=== PATIENT | female | born 1990 | race Two or more races ===

== ENCOUNTER 2022-11-02 11:16 | Outpatient (AMBR) | payer MEDICAID, SELFPAY ==
--- NOTE | 2022-11-02 12:40 | PT.ODAYNRPT ---
PT Outpatient Daily Note Date of Service: 11/02/22 OP Daily Note Visit Reasons: Low back pain Outpatient Physical Therapy Treatment Date: 11/02/22 Subjective: Pt reports no changes in low back. Objective: Please see flow sheet for ther ex list. Assessment: Slow interventions progression due to pt pain response. Plan: Continue with POC. Length of Time (minutes) of Treatment: 30 Minutes
--- NOTE | 2022-11-28 10:42 | PTNOTE_ITS ---
PT OP Progress/Discharge Note Date of Service: 11/28/22 Patient Information Visit Reasons: Low back pain Service Continue Service or Discharge: Discharge Discharge Date: 11/28/22 Status Assessment: Pt has been seen for 5 visits (eval + 4 visits). Pt last treated on 11/02/22 and no showed 11/07/22 appt. At this time Pt will be d/c from care due to non- compliance per attendance policy. Pt did not meet set goals in therapy; thank you for your referrals.
== END 2022-11-30 23:59 | disposition home or self-care (01) ==
PROVIDERS: Visit Provider Internal Medicine
DX: M54.50 Low back pain, unspecified (principal); M54.6 Pain in thoracic spine
CPT/HCPCS: 97110

== ENCOUNTER 2024-07-24 17:09 | Emergency (ER) | payer MEDICAID, SELFPAY ==
[2024-07-24 17:10] VITALS: BMI 21.9
[2024-07-24 18:08] VITALS: BP 120/84; PULSE 89; RESP 18; TEMP 36.9; O2SAT 99
[2024-07-24] MEDS: BACLOFEN 10 MG TABLET PO (18:33)
--- NOTE | 2024-07-24 18:39 | PD.EDFMALE ---
ED Female Urogenital RME/HPI General Chief complaint: Abdominal Pain Stated complaint: BERNARD LOWER BACK PAIN RADIATING TO FRONT ABD Time Seen by Provider: 07/24/24 18:25 Arrival date/time: 07/24/24 17:09 33F with history of asthma presents to ED with 2 days of bilateral lower back pain that radiates to pelvic area. Patient denies fall/trauma, N/V, dysuria, vaginal bleeding, diarrhea, bowel/bladder incontinence, and paresthesia. Patient is late on her cycle by about 3 days. Limitations: no limitations Related Data Home Medications ?Medication ?Instructions ?Recorded ?Confirmed vit no.95-ferrous 1 tab PO DAILY 05/23/21 11/06/21 fumarate 28 mg-folic acid 800 mcg tablet () omeprazole 20 mg capsule,delayed 20 mg PO QDAY 07/31/21 11/06/21 release ferrous sulfate 325 mg (65 mg 325 tab PO DAILY 11/06/21 11/06/21 iron) tablet Previous Rx's ?Medication ?Instructions ?Recorded ibuprofen 800 mg tablet 800 mg PO Q8H PRN pain #30 tabs 11/07/21 cyclobenzaprine 5 mg tablet 5 mg PO TID PRN muscle spasm #30 08/29/22 tabs ibuprofen 600 mg tablet 600 mg PO Q6H #30 tabs 08/29/22 Allergies Allergy/AdvReac Type Severity Reaction Status Date / Time No Known Allergies Allergy Verified 07/24/24 17:11 Review of Systems Review of Systems Systems Reviewed: All systems reviewed, normal except as documented Constitutional Constitutional: Reports system reviewed and no additional complaints, except as documented, Denies fever(s) and Denies headache(s) ENT Ears, Nose, Mouth, and Throat: Denies disequilibrium and Denies headache(s) Cardiovascular Cardiovascular: Reports system reviewed and no additional complaints, except as documented, Denies chest pain and Denies dyspnea Respiratory Respiratory: Reports system reviewed and no additional complaints, except as documented, Denies cough and Denies dyspnea Gastrointestinal Gastrointestinal: Reports system reviewed and no additional complaints, except as documented, Denies abdominal pain, Denies nausea and Denies vomiting Musculoskeletal Musculoskeletal: Reports as per HPI and Reports back pain Neurologic Neurologic: Reports system reviewed and no additional complaints, except as documented, Denies confusion, Denies disequilibrium and Denies headache(s) Psychiatric Psychiatric: Denies confusion Past Medical History Past Medical History NEUROLOGIC: Negative Neurological Disorders or Seizures CARDIAC: Negative Cardiac Disorders or Congestive Heart Failure RESPIRATORY: Positive Asthma; Negative Chronic Obstructive Pulmonary Disease (COPD) GASTROINTESTINAL: Positive Gastrointestinal Disorders and Gastroesophageal Reflux Disease; Negative Gall Bladder Disease GENITOURINARY: Positive Genitourinary Disorders (UTI, YEAST INFECTION); Negative Renal Disease REPRODUCTIVE: Positive Genital Herpes and Previous Pregnancies MUSCULOSKELETAL: Negative Musculoskeletal Disorders ENDOCRINE: Negative Endocrine Disorders, Diabetes Mellitus Type 1 or Diabetes Mellitus Type 2 HEMATOLOGIC: Positive Blood Disorders and Anemia; Negative Sickle Cell Disease PSYCHO/SOCIAL: Positive Anxiety OTHER HISTORY: Positive Blood Transfusions ((2020)); Negative Autoimmune Disease, Falls, Blood Transfusion Reaction, Anesthesia Reactions or Cancer Family History FAMILY HISTORY: Negative Family Psychiatric Problems, Family Respiratory Disorders, Family Cardiac Disorders, Family Gastrointestinal Problems, Family Cancer, Family Surgery or Family Anesthesia Reaction Surgical History SURGICAL: Negative Neurologic Surgery Social History SMOKING STATUS: Never smoker SUBSTANCE USE: does not use ED Exam General Limitations: Present no limitations General appearance: Present alert and in no apparent distress Head Head exam: Present atraumatic Eye Eye exam: Present normal appearance, PERRL and EOMI ENT ENT exam: Present normal exam, normal oropharynx and mucous membranes moist Neck Neck exam: Present normal inspection, full ROM and trachea midline Chest Chest inspection: Present normal inspection and symmetric chest wall rise Respiratory Respiratory exam: Present normal lung sounds bilaterally Cardiovascular Cardiovascular exam: Present regular rate, normal rhythm and normal heart sounds Abdominal Exam Abdominal exam: Present soft and normal bowel sounds Extremities Exam Extremities exam: Present normal inspection and full ROM Back Exam Back exam: Present normal inspection and full ROM Neurological Exam Neurological exam: Present alert, oriented X3 and CN II-XII intact Psychiatric Psychiatric exam: Present normal affect and normal mood Skin Skin exam: Present warm, dry, intact and normal color Course Quality Measures none Orders Category Date Time Status US transvaginal Stat Exams 07/24/24 21:12 Completed Drug Screen,Urine Stat Lab 07/24/24 19:12 Completed HCG Qualitative,Urine Stat Lab 07/24/24 19:12 Completed Urinalysis, C/S if Indicated Stat Lab 07/24/24 19:12 Completed Baclofen [Lioresal] Med 07/24/24 18:25 Discontinued 10 mg PO X1 ONE HYDROcodone*/APAP 5/325 [[place] 5/325] Med 07/24/24 22:03 Discontinued 1 tab PO X1 ONE Vital Signs Vital signs: Vital Signs Temperature 98.5 F 04/24/25 18:08 Pulse Rate 89 07/24/24 18:08 Respiratory Rate 18 07/24/24 18:08 Blood Pressure 120/84 07/24/24 18:08 Pulse Oximetry (%) 99 07/24/24 18:08 Oxygen Delivery Method Room Air 07/24/24 18:08 O2 at 99% on RA and WNLs Urogenital - Female MDM Narrative MDM Narrative:: 33F with history of asthma presents to ED with 2 days of bilateral lower back pain that radiates to pelvic area. Patient denies fall/trauma, N/V, dysuria, vaginal bleeding, diarrhea, bowel/bladder incontinence, and paresthesia. Patient is late on her cycle by about 3 days. Physical exam reveals well-appearing female. Gait normal. ROM intact. Patient is afebrile, calm, and alert. US reveals ovarian cyst. UA clean. HCG neg. Patient data External records reviewed:: [facility] previous records Clinical information provided by:: patient Social determinants that could affect healthcare access:: none Patient has the following chronic illnesses:: asthma How is presenting disease/condition affected by chronic disease/condition?: exacerbated by Evaluation data The following diagnostics were reviewed and interpreted by me:: lab results Lab and/or radiology exams considered but not ordered:: ordered Interpretation Summary: above Medications / Prescriptions Medications or Prescriptions considered but not ordered:: ordered Medication administrations:: Medication Administration History Discontinued Medications Hydrocodone Bitart/Acetaminophen (Hydrocodone/Apap 5/325 Tablet) 1 tab PO X1 ONE Stop: 07/24/24 22:04 Last Admin: 07/24/24 22:10 Dose: 1 tab Documented By: WERO Baclofen (Baclofen 10 Mg Tablet) 10 mg PO X1 ONE Stop: 07/24/24 18:26 Last Admin: 07/24/24 18:33 Dose: 10 mg Documented By: GM above Consultations Consultation(s) initiated? (list below): No Diagnosis Urogenital Female Differential Diagnosis: urinary tract infection, bacterial vaginosis, trichomoniasis, cervicitis, ovarian cyst, vaginitis, ruptured ovarian cyst, cyst of Bartholin's gland, cystitis, dysmenorrhea and other (back pain, , ) Most likely diagnosis given after review of the tests above:: ovarian cyst Admission Indicated Admission indicated?: not indicated Admission Request Was there a request for admission?: No Disposition Plan Disposition Plan: Discharge Discharge Attestation Discharge Attestation: The patient and all family members were given an opportunity to ask questions and understood the discharge instructions. Discharge instructions specifically effects, indications for sooner follow up or return to the emergency department, and the expected course of current diagnosis. Patient condition: Stable Discharge Plan Plan Patient Disposition: HOME (Self Care) Disposition Comment: Stable Prescriptions/Referrals Prescriptions/Med Rec: No Action PNV cmb#95-ferrous fumarate-FA [] 28 mg iron- 800 mcg tablet 1 tab PO DAILY omeprazole 20 mg capsule,delayed release(DR/EC) 20 mg PO QDAY Patient Comments: TAKE 1 CAPSULE BY MOUTH EVERY DAY 30 MINUTES BEFORE BREAKFAST ferrous sulfate 325 mg (65 mg iron) tablet 325 tab PO DAILY Patient Comments: Take 1 tablet by mouth twice a day as directed ibuprofen 800 mg tablet 800 mg PO Q8H PRN (Reason: pain) Qty: 30 0RF ibuprofen 600 mg tablet 600 mg PO Q6H Qty: 30 0RF cyclobenzaprine 5 mg tablet 5 mg PO TID PRN (Reason: muscle spasm) Qty: 30 0RF Referrals: No Primary/Family,Physician [Primary Care Provider] - In 1 week Problem List Clinical Impression: Ovarian cyst Patient/Caregiver Discharge Instructions Education Materials: ED Ovarian Cyst Additional Instructions: Please follow-up with PCP within 24-48 hours and return immediately if symptoms worsen. Print Language: Barbadian Stand Alone Forms: Patient Portal Info Letter PA/EDUCATION [employer] MEMBER Supervising Physician JUNE/[employer]UC[employer] MEMBER Supervising Physician: Dr. Pepper
[2024-07-24 20:07] VITALS: BP 125/84; PULSE 86; RESP 17; TEMP 36.8; O2SAT 100
[2024-07-24 20:10] LABS: Collection Type, Urine Clean Catch
[2024-07-24 20:13] LABS: HCG Qualitative,Urine Negative
[2024-07-24 20:20] LABS: Bilirubin,Urine Negative (Negative); Blood,Urine Negative (Negative); Clarity,Urine Clear (Clear/Hazy); Color,Urine Lt-Yellow (Lt Yel-Yel); Culture Indicated,Urine Not Indicated; Glucose, Urine Negative (Negative); Ketones,Urine Negative (Negative); Leukocyte Esterase,Urine Negative (Negative); Nitrite,Urine Negative (Negative); PH,Urine 5.5 (5.0-7.0); Protein,Urine Negative (Neg - Trace); RBC,Urine 2 /hpf (0-3); Specific Gravity,Urine 1.024 (1.001-1.035); Squamous Epithelial Cell,Urine 9 /hpf (0-5); Urobilinogen,Urine Negative mg/dL (0.0-1.0); WBC,Urine 3 /hpf (0-5)
[2024-07-24 20:22] LABS: Amphetamine/Methamp Scrn,U Negative (Negative); Barbiturate Screen,Urine Negative (Negative); Benzodiazepines Screen,Urine Negative (Negative); Benzoylecgonine Screen, Ur Negative (Negative); Fentanyl Screen,Urine Negative (Negative); Opiate Screen,Urine Negative (Negative); THC Screen,Urine Negative (Negative)
--- NOTE | 2024-07-24 21:12 | XR_ITS ---
Examination: Transvaginal ultrasound of the pelvis, complete Technique: Transvaginal sonographic images pelvis performed using borges scale imaging Exam date and time: July 24, 2024 1255 hours Indications: Pelvic pain today Findings: Uterus 7.8 cm endometrial stripe 1.1 cm No uterine mass or intrauterine gestation Right ovary 2.7 cm arterial flow Left ovary 3.0 cm arterial flow 19 mm follicular cyst Impression: Negative examination.
[2024-07-24] MEDS: HYDROcodone/APAP 5/325 TABLET 1 TAB PO (22:10)
[2024-07-24 22:11] VITALS: BP 127/65; PULSE 78; RESP 19; TEMP 36.6; O2SAT 99
== END 2024-07-24 22:12 | disposition home or self-care (01) ==
PROVIDERS: Physician Assistant; Emergency Provider Emergency Medicine
DX: N83.02 Follicular cyst of left ovary (principal)
CPT/HCPCS: 76830; 80307; 81001; 81025; 99284; A9270

== ENCOUNTER 2024-11-29 23:27 | Emergency (ER) | payer MEDICAID, SELFPAY ==
[2024-11-29 23:28] VITALS: BP 143/95; PULSE 100; RESP 17; TEMP 37.2; O2SAT 100; BMI 21.9
--- NOTE | 2024-11-29 23:37 | XR_ITS ---
Examination: PA chest single view. Technique: Upright PA chest single view Date and time: November 30, 2024, 1201 hrs. Indications: Chest pain shortness of breath coughing beginning 3 days ago. Findings: Normal heart size. Lungs are clear. There is moderate hyperexpansion. No pneumonia or pulmonary edema. Mild osteopenia. Impression: Moderate hyperexpansion. No pneumonia.
[2024-11-30 00:18] LABS: HCG,Qualitative Serum Negative
[2024-11-30 00:22] LABS: Strep A Rapid Negative (Negative)
[2024-11-30 00:27] VITALS: PULSE 82; RESP 20; O2SAT 98
[2024-11-30] MEDS: ALBUTEROL/IPRATROPIUM (Duoneb) RT SOL 3 ML NEBU INH (00:27)
[2024-11-30] MEDS: DEXAMETHASONE SOD PHOS INJ 10 MG/ML VIAL IM (00:28)
--- NOTE | 2024-11-30 02:31 | PD.EDURI ---
Upper Respiratory Inf. RME/HPI General Chief Complaint: Flu Like Symptoms Stated Complaint: COUGH CONGESTION THROAIT PAIN Time Seen by Provider: 11/29/24 23:34 Arrival date/time: 11/29/24 23:27 This is a case of 33-year-old female with history of asthma came in in the emergency room due to productive cough nasal congestion generalized body ache and subjective fever for 2 days worsening of the symptoms now with shortness of breath and wheezing this patient decided to sought consult here in the emergency room Limitations: no limitations Related Data Home Medications ?Medication ?Instructions ?Recorded ?Confirmed vit no.95-ferrous 1 tab PO DAILY 05/23/21 11/06/21 fumarate 28 mg-folic acid 800 mcg tablet () omeprazole 20 mg capsule,delayed 20 mg PO QDAY 07/31/21 11/06/21 release ferrous sulfate 325 mg (65 mg 325 tab PO DAILY 11/06/21 11/06/21 iron) tablet Previous Rx's ?Medication ?Instructions ?Recorded ibuprofen 800 mg tablet 800 mg PO Q8H PRN pain #30 tabs 11/07/21 cyclobenzaprine 5 mg tablet 5 mg PO TID PRN muscle spasm #30 08/29/22 tabs ibuprofen 600 mg tablet 600 mg PO Q6H #30 tabs 08/29/22 albuterol sulfate 90 mcg/actuation 2 puff inhalation Q4H PRN 11/30/24 aerosol inhaler (Ventolin HFA) shortness of breath or wheezing #8.5 grams azithromycin 250 mg tablet See Rx Instructions PO .COMPLEX #6 11/30/24 tabs lidocaine HCl 2 % mucosal solution 10 ml PO Q4HR PRN sore throat #100 11/30/24 (Lidocaine Viscous) mL nirmatrelvir 300 mg (150 mg See Rx Instructions PO .COMPLEX 11/30/24 x2)-ritonavir 100 mg tablet,dose #30 tabs pack (Paxlovid) promethazine-DM 6.25 mg-15 mg/5 mL 5 ml PO Q4H PRN cough #240 mL 11/30/24 oral syrup Allergies Allergy/AdvReac Type Severity Reaction Status Date / Time No Known Allergies Allergy Verified 11/29/24 23:31 Review of Systems Review of Systems Systems Reviewed: All systems reviewed, normal except as documented Constitutional Constitutional: Reports system reviewed and no additional complaints, except as documented and Reports as per HPI ENT Ears, Nose, Mouth, and Throat: Reports system reviewed and no additional complaints, except as documented and Reports as per HPI Cardiovascular Cardiovascular: Reports system reviewed and no additional complaints, except as documented, Reports as per HPI, Reports dyspnea and Denies dyspnea on exertion Respiratory Respiratory: Reports system reviewed and no additional complaints, except as documented, Reports as per HPI, Denies chest congestion, Reports cough, Reports dyspnea, Denies dyspnea on exertion, Denies excessive phlegm production and Reports wheezing Gastrointestinal Gastrointestinal: Reports system reviewed and no additional complaints, except as documented and Reports as per HPI Musculoskeletal Musculoskeletal: Reports system reviewed and no additional complaints, except as documented and Reports as per HPI Neurologic Neurologic: Reports system reviewed and no additional complaints, except as documented and Reports as per HPI Allergic/Immunologic Allergic/Immunologic: Reports wheezing Past Medical History Past Medical History NEUROLOGIC: Negative Neurological Disorders or Seizures CARDIAC: Negative Cardiac Disorders or Congestive Heart Failure RESPIRATORY: Positive Asthma; Negative Chronic Obstructive Pulmonary Disease (COPD) GASTROINTESTINAL: Positive Gastrointestinal Disorders and Gastroesophageal Reflux Disease; Negative Gall Bladder Disease GENITOURINARY: Positive Genitourinary Disorders (UTI, YEAST INFECTION); Negative Renal Disease REPRODUCTIVE: Positive Genital Herpes and Previous Pregnancies MUSCULOSKELETAL: Negative Musculoskeletal Disorders ENDOCRINE: Negative Endocrine Disorders, Diabetes Mellitus Type 1 or Diabetes Mellitus Type 2 HEMATOLOGIC: Positive Blood Disorders and Anemia; Negative Sickle Cell Disease PSYCHO/SOCIAL: Positive Anxiety OTHER HISTORY: Positive Blood Transfusions ((2020)); Negative Autoimmune Disease, Falls, Blood Transfusion Reaction, Anesthesia Reactions or Cancer Family History FAMILY HISTORY: Negative Family Psychiatric Problems, Family Respiratory Disorders, Family Cardiac Disorders, Family Gastrointestinal Problems, Family Cancer, Family Surgery or Family Anesthesia Reaction Surgical History SURGICAL: Negative Neurologic Surgery Social History SMOKING STATUS: Never smoker SUBSTANCE USE: does not use ED Exam General Limitations: Present no limitations General appearance: Present alert, in no apparent distress and other (Patient is awake alert oriented not in distress nontoxic looking well-hydrated well-nourished) Head Head exam: Present atraumatic and normocephalic Eye Eye exam: Present normal appearance, PERRL and EOMI ENT ENT exam: Present normal exam, normal oropharynx, mucous membranes moist and other (Nose and ears normal patient noted to have redness antibiotics and tonsils tonsils are swelling but no exudate no drooling of saliva patient can speak full sentences no muffled voice no peritonsillar abscess) Neck Neck exam: Present normal inspection, full ROM and trachea midline; Absent tenderness, meningismus, lymphadenopathy or thyromegaly Chest Chest inspection: Present normal inspection and symmetric chest wall rise; Absent tenderness Respiratory Respiratory exam: Present normal lung sounds bilaterally and wheezes (Wheezing both lower lung field no crackles no rales no retraction no stridor); Absent respiratory distress, stridor, accessory muscle use or prolonged expiratory phase Cardiovascular Cardiovascular exam: Present regular rate, normal rhythm and normal heart sounds; Absent bradycardia, tachycardia, irregular rhythm, systolic murmur or diastolic murmur Abdominal Exam Abdominal exam: Present soft and normal bowel sounds; Absent distention, tenderness, guarding, rebound, rigidity, diminished bowel sounds, hyperactive bowel sounds, hypoactive bowel sounds or organomegaly Extremities Exam Extremities exam: Present normal inspection and full ROM Back Exam Back exam: Present normal inspection and full ROM Neurological Exam Neurological exam: Present alert, oriented X3, CN II-XII intact, normal gait and reflexes normal; Absent motor sensory deficit Psychiatric Psychiatric exam: Present normal affect and normal mood Skin Skin exam: Present warm, dry, intact, normal color and other (Excellent skin turgor) Course Quality Measures none Orders Category Date Time Status Bedside COVID-19 Antigen Test NOW Care 11/29/24 23:37 Active Bedside Influenza A&B Antigen Test NOW Care 11/29/24 23:37 Active XR chest 1V portable Stat Exams 11/29/24 23:37 Taken HCG,Qualitative Serum Stat Lab 11/29/24 23:49 Completed Strep A Rapid Stat Lab 11/29/24 23:40 Completed Albuterol/Ipratr Rt Sandi [Duoneb Rt Sandi] Med 11/29/24 23:37 Discontinued 3 ml INH X1 ONE Dexamethasone Inj [Decadron Inj] Med 11/29/24 23:37 Discontinued 10 mg IM X1 ONE Vital Signs Vital signs: Vital Signs Temperature 99.0 F 11/29/24 23:28 Pulse Rate 100 11/29/24 23:28 Respiratory Rate 17 11/29/24 23:28 Blood Pressure 143/95 H 11/29/24 23:28 Pulse Oximetry (%) 100 11/29/24 23:28 Oxygen Delivery Method Room Air 11/29/24 23:28 Oxygen saturation is 100% in room air normal Upper Respiratory Infection MDM Narrative MDM Narrative:: This is a case of 33-year-old female with history of asthma came in in the emergency room due to productive cough nasal congestion generalized body ache and subjective fever for 2 days worsening of the symptoms now with shortness of breath and wheezing this patient decided to sought consult here in the emergency room physical examination patient is awake alert oriented not in distress nontoxic looking well-hydrated well-nourished excellent skin turgor HEENT exam noted that the pharynx was redness tonsils was also red with and swelling but no exudate no peritonsillar abscess no drooling of saliva patient can speak full sentences no muffled voice the rest of the HEENT exam is normal and unremarkable heart normal rate regular rhythm no murmur lungs noted to have wheezing both lower lung field no crackles no rales no retraction no stridor at the time of the exam no signs and symptoms of sepsis dehydration hypoxia vital signs stable BP stable nontachycardic nontachypneic afebrile and nonhypoxic patient was given a breathing treatment and steroid here in the emergency room which patient condition markedly improved patient is positive for COVID-negative for flu negative for rapid strep chest x-ray were normal no pneumonia at this point based on my physical examination and history patient symptoms suggestive of asthmatic bronchitis and COVID and pharyngitis patient after breathing treatment steroid patient condition markedly improved no wheezing noted no shortness of breath patient will be discharged home with stable condition patient was given Paxlovid for COVID azithromycin for bronchitis and pharyngitis Ventolin inhaler as needed for shortness of breath and cough medication patient will follow-up with PCP in 2 days for reevaluation and return precaution to the ER for any worsening symptoms self quarantine is also advised Patient was discharged with comfortable condition walking with stable gait. Patient verbalized no further complains explained diagnosis and answered patient question. Patient is comfortable with the proposed management plan including the need to follow up with his/her primary care physician and any specialist if applicable Discussed patient for any urgent condition or worsening sx, He/She needed to go to emergency room immediately or call 911. Patient acknowledge the responsibility to follow up as instructed and to monitor her/his symptoms. For any persistence of the symptoms for more than 3-5 days return precaution advised. Discussed the result of the test and was given printed discharge instruction Patient data External records reviewed:: [facility] previous records Clinical information provided by:: patient Social determinants that could affect healthcare access:: none Patient has the following chronic illnesses:: None How is presenting disease/condition affected by chronic disease/condition?: no chronic disease Evaluation data The following diagnostics were reviewed and interpreted by me:: lab results and radiology exam(s) Lab and/or radiology exams considered but not ordered:: Reviewed Interpretation Summary: Reviewed Medications / Prescriptions Medications or Prescriptions considered but not ordered:: Given Medication administrations:: Medication Administration History Discontinued Medications Albuterol/Ipratropium (Albuterol/Ipratropium (Duoneb) Rt Sandi 3 Ml Nebu) 3 ml INH X1 ONE Stop: 11/29/24 23:38 Last Admin: 11/30/24 00:27 Dose: 3 ml Documented By: BENJAMIN Dexamethasone Sodium Phosphate (Dexamethasone Sod Phos Inj 10 Mg/Ml Vial) 10 mg IM X1 ONE Stop: 11/29/24 23:38 Last Admin: 11/30/24 00:28 Dose: 10 mg Documented By: SADIE Given Consultations Consultation(s) initiated? (list below): No Diagnosis Upper Respiratory Differential Diagnosis: upper respiratory infection, sinusitis, viral infection, bronchitis, influenza and other (COVID) Most likely diagnosis given after review of the tests above:: COVID asthmatic bronchitis pharyngitis Admission Indicated Admission indicated?: not indicated Explain why admission is indicated or not indicated:: Not indicated Admission Request Was there a request for admission?: No Admission Attestation Admission request attestation: Not indicated Disposition Plan Disposition Plan: Discharge Discharge Attestation Discharge Attestation: The patient and all family members were given an opportunity to ask questions and understood the discharge instructions. Discharge instructions specifically effects, indications for sooner follow up or return to the emergency department, and the expected course of current diagnosis. Patient condition: Stable Discharge Plan Plan Patient Disposition: HOME (Self Care) Patient condition on transfer: Stable Prescriptions/Referrals Prescriptions/Med Rec: New azithromycin 250 mg tablet See Rx Instructions .ROUTE .COMPLEX Qty: 6 0RF Rx Instructions: For 250 mg dose pack: take 500 mg today (day 1), then 250 mg for 4 days (days 2-5) Paxlovid 300 mg (150 mg x 2)-100 mg tablets,dose pack See Rx Instructions .ROUTE .COMPLEX Qty: 30 0RF Rx Instructions: take TWO 150 mg tablets of nirmatrelvir with ONE 100 mg tablet of ritonavir twice daily for 5 days albuterol sulfate [Ventolin HFA] 90 mcg/actuation HFA aerosol inhaler 2 puff inhalation Q4H PRN (Reason: shortness of breath or wheezing) Qty: 8.5 0RF promethazine-DM 6.25-15 mg/5 mL syrup 5 ml PO Q4H PRN (Reason: cough) Qty: 240 0RF lidocaine HCl [Lidocaine Viscous] 2 % solution 10 ml PO Q4HR PRN (Reason: sore throat) Qty: 100 0RF No Action PNV no.95-ferrous fumarate-FA [] 28 mg iron- 800 mcg tablet 1 tab PO DAILY omeprazole 20 mg capsule,delayed release(DR/EC) 20 mg PO QDAY Patient Comments: TAKE 1 CAPSULE BY MOUTH EVERY DAY 30 MINUTES BEFORE BREAKFAST ferrous sulfate 325 mg (65 mg iron) tablet 325 tab PO DAILY Patient Comments: Take 1 tablet by mouth twice a day as directed ibuprofen 800 mg tablet 800 mg PO Q8H PRN (Reason: pain) Qty: 30 0RF ibuprofen 600 mg tablet 600 mg PO Q6H Qty: 30 0RF cyclobenzaprine 5 mg tablet 5 mg PO TID PRN (Reason: muscle spasm) Qty: 30 0RF Referrals: No Primary/Family,Physician [Primary Care Provider] - In 1 week Problem List Clinical Impression: COVID, Pharyngitis, AB (asthmatic bronchitis) Patient/Caregiver Discharge Instructions Education Materials: When You Have a Sore Throat, Acute Bronchitis, COVID-19 Home Care, Asthma Additional Instructions: Follow-up with your primary care physician in 2 days for reevaluation worsening persistent recurrence of the symptoms return to the emergency room immediately or call 911 for any fever shortness of breath retraction wheezing unable to eat unable to breathe lethargy return to the emergency room immediately or call 911 take your medication as directed finish the course of antibiotic increase water intake keep hydrated spatulate Gatorade hydration take vitamin C and zinc daily monitor temperature every 4-6 hours and take Tylenol Motrin for fever monitor your oxygen saturation every 12 hours and if your oxygen saturation less than 92% return to the emergency room immediately or call 911 self quarantine per CDC protocol Print Language: Liberian Stand Alone Forms: Leanna Award Info., Work/School Release, Patient Portal Info Letter PA/CONTRACT ADMIN Supervising Physician PA/CONTRACT ADMIN Supervising Physician: Dr. Mcdowell
[2024-11-30 02:48] VITALS: BP 116/95; PULSE 100; RESP 19; TEMP 37; O2SAT 97
== END 2024-11-30 02:50 | disposition home or self-care (01) ==
PROVIDERS: Nurse Practitioner Family; Emergency Provider Emergency Medicine
DX: U07.1 COVID-19 (principal); J02.9 Acute pharyngitis, unspecified; J45.909 Unspecified asthma, uncomplicated
CPT/HCPCS: 36415; 71045; 84703; 87651; 94640; 96372; 99283; A9270; J1100

== ENCOUNTER → 2025-02-04 | Outpatient (CLI) | payer MEDICAID, SELFPAY ==
--- NOTE | 2025-02-04 | XR_ITS ---
Examination: Foot, left, 3 views Technique: AP, oblique, lateral views foot, 3 views Date and time of exam: 02/04/2025, 11:30 a.m. INDICATION: Left foot pain for 3 days. No history of trauma. COMPARISON: None FINDINGS: Pes planus noted. No fractures or significant osteoarthritic changes. 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 No concerning lytic changes or periostitis. Soft tissue swelling identified throughout the foot, most pronounced in the forefoot. No radiodense foreign body or subcutaneous emphysema. IMPRESSION: Diffuse soft tissue swelling but no evidence for acute osseous abnormality in the left foot. Pes planus but otherwise no significant osteoarthritic changes detected.
== END | disposition home or self-care (01) ==
LOC: CDIM 10:50
PROVIDERS: PCP Student in an Organized Health Care Education/Training Program; Referring Provider Student in an Organized Health Care Education/Training Program; Visit Provider Student in an Organized Health Care Education/Training Program
DX: R60.0 Localized edema (principal); M21.42 Flat foot [pes planus] (acquired), left foot
CPT/HCPCS: 73630